=== PATIENT | male | born 1975 | race Caucasian/White ===

== ENCOUNTER 2025-01-26 15:27 | Emergency (ER) | payer MEDICAID, SELFPAY ==
[2025-01-26 15:36] VITALS: BP 179/109; PULSE 87; RESP 16; TEMP 36.7; O2SAT 99
[2025-01-26 15:37] VITALS: BMI 30.9
--- NOTE | 2025-01-26 15:37 | EKG12_ITS ---
Test Reason : CP Blood Pressure : */* mmHG Vent. Rate : 99 BPM Atrial Rate : 99 BPM P-R Int : 166 ms QRS Dur : 92 ms QT Int : 346 ms P-R-T Axes : 35 24 120 degrees QTcB Int : 444 ms Normal sinus rhythm T wave abnormality, consider lateral ischemia Abnormal ECG Confirmed by CHEN GODINEZ, JAKE ([id number]), online editor JASMYNE MCKEON ([id number]) on 01/30/2025 9:05:53 AM Referred By: PRIETO/JOSE Confirmed By: JAKE SIDDIQUI MD
--- NOTE | 2025-01-26 15:37 | RAD_ITS ---
PROCEDURE: CHEST 1 VIEW (PORTABLE) 01/26/2025 REASON FOR EXAM: CHEST PAIN TECHNIQUE: Frontal view of the chest. COMPARISON: None FINDINGS: Lungs: The lungs are symmetrically expanded. Lung volumes are at the lower end of normal. Slight crowding of vasculature in mild atelectasis seen overlying the lower lung banuelos. There is no consolidation. There is no peribronchial thickening. There is no pulmonary vascular redistribution. Pleura: No significant pleural effusion seen. There is no evidence of pneumothorax. Mediastinum: There is no mediastinal widening or mediastinal shift. Heart: The cardiac silhouette is not enlarged. Florence: The pulmonary florence are not enlarged or retracted. Osseous: No acute fracture is seen. RAD/Chest 1 View (Portable) IMPRESSION: Mild bibasal atelectasis. Reading Location: [id number]
[2025-01-26 16:02] LABS: Hematocrit 44.3 % (40-54); Hemoglobin 15.1 g/dL (13.0-16.5); Immature Granulocytes Count 0.020 X10^3/uL (0.0-0.0); Mean Corp Hgb Conc 34.1 g/dL (32-36); Mean Corpuscular Volume 91.3 fL (80-94); Mean Platelet Vol. 10.5 fl (6.2-12.0); NRBC Flagged by Analyzer 0 % (0-5); Platelet Count 223 K/mm3 (150-450); RBC Distribution Width CV 12.3 % (11.6-14.6); RBC Distribution Width SD 41.0 fl (35.1-43.9); Red Blood Count 4.85 M/mm3 (4.6-6.2); White Blood Count 7.8 K/mm3 (4.4-11.0)
[2025-01-26 16:04] VITALS: O2SAT 94
[2025-01-26 16:27] VITALS: BP 150/95; PULSE 83; RESP 15; O2SAT 93
--- NOTE | 2025-01-26 16:35 | ED.VIS.CHEST ---
HPI History of Present Illness Chief Complaint: Chest Pain Narrative Narrative: Patient is a 49-year-old male presenting to the emergency department for chest pain. Patient has a past medical history of type 2 diabetes, hypertension. Patient states that he developed chest pain that felt like a lightening bolt in his chest at 1 AM. Reports that since then his chest has been tight mainly on the left side. Reports some mild shortness of breath with it. Denies any fever, chills, cough, congestion or sore throat. Denies any diaphoresis, nausea, vomiting, abdominal pain. Denies any family history of sudden cardiac . [facility] Medical History Diabetes HTN (hypertension) Social History household members: children Smoking Status: Never smoker ROS ROS ED ROS Narrative see HPI EXAM Physical Exam Narrative Exam Narrative: Vital signs: Reviewed General: Alert and oriented x 3. No acute distress HEENT: Head is normocephalic and atraumatic, sinuses nontender, pupils equal round and reactive. Nares are patent. Oropharynx and throat exams normal. Neck: Supple without lymphadenopathy nontender Cardiovascular: Regular rate and rhythm, no murmurs. No rubs or gallops. Normal S1 and S2 Respiratory: Clear to auscultation bilaterally. No wheezes, rales, rhonchi Abdominal: Soft and nontender. Normal bowel sounds. No guarding or rebound. Nonsurgical abdomen Extremities: No tenderness. No bruising. Normal range of motion. Normal sensation. Skin: No rash or redness. Neurological: Cranial nerves II through XII are grossly intact. Normal strength and sensation. Normal cerebellar function The rest of the physical exam is unremarkable Const Vital Signs: 01/26/25 15:36 01/26/25 16:04 01/26/25 16:27 Temperature 98.0 F Temperature Source Oral Pulse Rate 87 83 Respiratory Rate 16 15 Respiratory Effort Blood Pressure 179/109 H 150/95 H Blood Pressure Mean 132 113 Pulse Ox 99 94 93 Oxygen Delivery Method Room Air 01/26/25 17:00 01/26/25 17:15 01/26/25 18:00 Temperature Temperature Source Pulse Rate 78 91 Respiratory Rate 14 18 Respiratory Effort Normal Non-Labored Blood Pressure 156/78 H 162/102 H Blood Pressure Mean 104 122 Pulse Ox 96 97 Oxygen Delivery Method Room Air Room Air 01/26/25 18:30 Temperature 97.8 F Temperature Source Pulse Rate 91 Respiratory Rate 18 Respiratory Effort Blood Pressure 155/107 H Blood Pressure Mean 123 Pulse Ox 97 Oxygen Delivery Method Heart Score History: Slightly/Non-Suspicious ECG: Normal Age: >45 - <65 years Risk Factors: >/= 3 Risk Factors or History of CAD Troponin: </= Normal Limit Score: 3 MDM MDM MDM Narrative Medical decision making narrative: Patient is a 49-year-old male presenting to the emergency department for chest pain. Patient was seen and examined. Vitals are stable. Patient resting bed comfortably no acute distress. EKG shows normal sinus rhythm. No ischemic changes. No dysrhythmia. CBC with no leukocytosis and normal hemoglobin. BMP with no significant abnormalities. Troponin reflex within normal limits. Chest x-ray reviewed and there is no acute opacities, pneumothorax or widened mediastinum. Radiology read with no acute findings. Low heart score of 3. Patient updated on the negative workup. Stable for outpatient management. Patient discharged from the Emergency Department. I do not feel that the patient's evaluation reveals any acute reason for admission at this time. I instructed them to either follow-up with their primary care physician or promptly return to the Emergency Department for reevaluation should symptoms worsen or new symptoms develop. I explained what symptoms would indicate the need to return to the emergency department. Shared decision making was used. The patient voiced understanding of the treatment plan and is agreeable with it. Clinical impression Chest pain History & Record Review Discussion w/independent historian: Patient Lab Data Attestation: I reviewed the patient's lab results. Labs: Laboratory Results - last 24 hr 01/26/25 01/26/25 01/26/25 15:38 17:32 17:35 WBC 7.8 RBC 4.85 Hgb 15.1 Hct 44.3 MCV 91.3 MCH 31.1 MCHC 34.1 RDW Std Deviation 41.0 RDW Coeff of Edyta 12.3 Plt Count 223 MPV 10.5 Immature Gran % (Auto) 0.300 Neut % (Auto) 68.0 Lymph % (Auto) 23.6 Nicol[place] % (Auto) 5.9 Eos % (Auto) 1.4 Baso % (Auto) 0.8 Absolute Neuts (auto) 5.3 Absolute Lymphs (auto) 1.84 Nucleated RBC % 0 Sodium 138 Potassium 4.3 Chloride 103 Carbon Dioxide 23.3 Anion Gap 12 BUN 18 Creatinine 0.95 Est GFR (MDRD) Non-Af 98 BUN/Creatinine Ratio 18.4 Glucose 238 H Calcium 9.4 Troponin T High Sens 22 Troponin T Hi Sens 2 Hr 22 POC Glucose 221 H Radiography Chest X-Ray - ED: Read by ED Physician, Normal, No Acute Disease and No Infiltrates Diagnostic Testing: Clinical Impression(s) from Imaging Studies Chest X-Ray 01/26/25 15:37 IMPRESSION: Mild bibasal atelectasis. Reading Location: [facility] Discharge Plan Triage Chief Complaint: Chest Pain ED Provider: Patricia Neff Dx/Rx/DC Orders Clinical Impression: Chest pain Instructions: ED Chest Pain, Uncertain Cause Primary Care Provider: Care Physician,No Primary Referrals: Nicole Gordon MD [Med Staff - Library Sales Consultant] - 2 Days Care Physician,No Primary [Primary Care Provider] - Activity Restrictions/Additional Instructions: Your evaluation in the Emergency Department did not reveal any acute reason for admission. However, I want to emphasize that you may be early in the course of a disease process or illness even if it is not present. For this reason you should follow-up within 24 hours for reevaluation with either your primary care physician or if necessary back here in the Emergency Department. You should return to the Emergency Department immediately if your symptoms worsen or new symptoms develop. Print Language: Paraguayan Disposition Disposition: Home, Self Care Discharge Date/Time: 01/26/25 18:38
[2025-01-26 16:53] LABS: Anion Gap 12 (5-15); BUN 18 mg/dL (4-19); BUN/Creat Ratio 18.4 RATIO (10-20); Calcium,Total 9.4 mg/dL (7.6-11.0); Carbon Dioxide 23.3 mmol/L (21.0-32.0); Chloride 103 mmol/L (98-108); Glucose 238 mg/dL (70-99); Potassium 4.3 mmol/L (3.3-5.1); Troponin T High Sensitivity 22 ng/L (<=22)
[2025-01-26 17:00] VITALS: BP 156/78; PULSE 78; RESP 14; O2SAT 96
[2025-01-26 18:00] VITALS: BP 162/102; PULSE 91; RESP 18; O2SAT 97
[2025-01-26 18:19] LABS: Troponin T High Sens 2 HR 22 ng/L (<=22)
[2025-01-26 18:30] VITALS: BP 155/107; PULSE 91; RESP 18; TEMP 36.6; O2SAT 97
== END 2025-01-26 18:38 | disposition home or self-care (01) ==
PROVIDERS: Emergency Provider Student in an Organized Health Care Education/Training Program; Visit Provider Student in an Organized Health Care Education/Training Program
DX: R07.9 Chest pain, unspecified (principal); E11.9 Type 2 diabetes mellitus without complications; I10 Essential (primary) hypertension; J98.11 Atelectasis; R06.02 Shortness of breath
CPT/HCPCS: 71045; 80048; 82962; 84484; 85025; 93005; 99284; A4216